=== PATIENT | male | born 1955 | race Caucasian/White ===

== ENCOUNTER 2019-10-18 14:47 | Emergency (ER) | payer MEDICARE, MEDICAID ==
[~2019-10-18] VITALS: Ht 170.2 cm; Wt 85.0 kg
[2019-10-18] MEDS ORDERED: IBUPROFEN 600MG TABLET PO STA (15:14)
[2019-10-18 15:40] VITALS: BP 115/66
[2019-10-18] MEDS ORDERED: ACETAMINOPHEN 325MG TABLET PO ONE (18:45)
== END 2019-10-18 19:04 | disposition home or self-care (01) ==
LOC: ER 14:47
DX: B34.9 Viral infection, unspecified (principal); Z20.828 Contact with and (suspected) exposure to other viral communicable diseases
CPT/HCPCS: 71045; 87804; 99284; C9803; U0003; 87635

== ENCOUNTER 2019-10-20 12:06 | Inpatient (IN) | payer MEDICARE, MEDICAID ==
[~2019-10-20] VITALS: Ht 170.2 cm; Wt 87.1 kg
[2019-10-20] MEDS ORDERED: SODIUM CHLORIDE 0.9% 1,000 ML IV ONE (13:15)
[2019-10-20] MEDS ORDERED: AZITHROMYCIN 500 MG in DEXT 5% WATER 250 ML IV ONE (13:15)
[2019-10-20] MEDS ORDERED: CEFTRIAXONE 1 G PREMIX 50 ML IV ONE (13:15)
[2019-10-20] MEDS: SODIUM CHLORIDE 0.9% 1000ML BAG (SEPSIS BOLUS) IV ONE ×2 (13:28→13:46)
[2019-10-20 13:45] LABS: BASOPHILS % 0.6 % (0.0-2.0); EOSINOPHILS % 0.2 % (0.0-5.0); HEMATOCRIT. 41.2 % (42.0-52.0); HEMOGLOBIN. 14.1 g/dL (14.0-18.0); LYMPHOCYTES % 17.3 % (20.0-50.0); MEAN CORPUSCULAR HEMOGLOBIN 29.1 pg (28.0-32.0); MEAN CORPUSCULAR VOLUME 85.4 fL (80.0-94.0); MEAN PLATELET VOLUME 8.3 fl (7.4-10.4); MONOCYTES % 6.4 % (2.0-8.0); NEUTROPHILS % 75.5 % (40.0-76.0); PLATELET 158 x1000/uL (130-400); RED BLOOD CELL COUNT 4.83 mill/uL (4.7-6.1); RED CELL DISTRIBUTION WIDTH 14.5 % (11.6-14.6)
[2019-10-20 13:51] LABS: CLARITY URINE CLOUDY (CLEAR); COLOR URINE YELLOW (YELLOW); KETONES URINE NEGATIVE (NEGATIVE); LEUKOCYTE ESTERASE URINE NEGATIVE (NEGATIVE); NITRITE URINE NEGATIVE (NEGATIVE); OCCULT BLOOD URINE NEGATIVE (NEGATIVE); PROTEIN URINE 2+ (NEGATIVE); SPECIFIC GRAVITY URINE 1.023 (1.005-1.030); UROBILINOGEN URINE 0.2 E.U./dL (0.2-1.0)
[2019-10-20 13:52] LABS: CHLORIDE 103 mEq/L (98-107)
[2019-10-20 13:55] LABS: INR 1.1; PROTHROMBIN TIME 11.1 sec (9.6-11.0)
[2019-10-20] MEDS ORDERED: SODIUM CHLORIDE 0.9% 1,000 ML IV NR (18:11)
[2019-10-20] MEDS ORDERED: ACETAMINOPHEN 500MG TABLET PO NR (18:15)
[2019-10-20] MEDS ORDERED: ACETAMINOPHEN 325MG TABLET PO PRN ×3 (18:19→23:00)
[2019-10-20 22:45] VITALS: BP 108/65
[2019-10-20] MEDS ORDERED: DEXTROSE 50% WATER 50ML SYRINGE IV PRN (23:00)
[2019-10-20] MEDS ORDERED: CLONIDINE 0.1MG TABLET PO PRN (23:00)
[2019-10-20] MEDS ORDERED: DIPHENHYDRAMINE 50MG/ML VIAL IV PRN (23:00)
[2019-10-20] MEDS ORDERED: ONDANSETRON HCL 4MG/2ML INJ IV PRN (23:00)
[2019-10-20] MEDS ORDERED: ZOLPIDEM TARTRATE 5MG TABLET PO PRN (23:00)
[2019-10-20] MEDS ORDERED: ALBUTEROL 6.7GM HFA INHALER ORI PRN (23:00)
[2019-10-20] MEDS: ENOXAPARIN 100MG/ML SYR SUBCUT SCH (23:48)
[2019-10-21] VITALS: BP 145/72
[2019-10-21] MEDS ORDERED: ALLO100T PO (02:15)
[2019-10-21] MEDS ORDERED: ALPR-339 PO (02:15)
[2019-10-21] MEDS ORDERED: MECL-159 PO (02:15)
[2019-10-21] MEDS ORDERED: CRES10 PO (02:15)
[2019-10-21] MEDS ORDERED: CHOL500063 MT (02:15)
[2019-10-21] MEDS ORDERED: FOLI0.8C PO (02:15)
[2019-10-21] MEDS ORDERED: MICAR4 PO (02:15)
[2019-10-21] MEDS: GUAIFENESIN/CODEINE 200-20MG/10ML UDC PO PRN ×2 (02:38→21:22)
[2019-10-21 04:00] VITALS: BP 137/75
[2019-10-21] MEDS: SODIUM CHLORIDE 0.9% INJ 3ML FLUSH IVF SCH ×3 (07:09→21:23)
[2019-10-21] MEDS: BLOOD SUGAR DIAGNOSTIC STRIP TEST SCH ×4 (07:09→21:15)
[2019-10-21] MEDS: INSULIN LISPRO 100 UNITS/ML SUBCUT SCH ×4 (07:49→21:16)
[2019-10-21] MEDS: GUAIFENESIN 600MG ER TABLET PO SCH ×2 (09:23→21:15)
[2019-10-21] MEDS: ENOXAPARIN 100MG/ML SYR SUBCUT SCH (09:23)
[2019-10-21] MEDS: DEXAMETHASONE 4MG TABLET PO SCH (09:23)
[2019-10-21] MEDS: FAMOTIDINE 20MG TABLET PO SCH ×2 (09:24→21:15)
[2019-10-21 09:41] VITALS: BP 114/62
[2019-10-21 12:34] VITALS: BP 110/69
[2019-10-21] MEDS: AZITHROMYCIN 500 MG in DEXT 5% WATER 250 ML IV SCH (13:42)
[2019-10-21] MEDS: CEFTRIAXONE 1,000 MG in DEXTROSE 5% WATER 50 ML IV SCH (14:57)
[2019-10-21 16:53] VITALS: BP 105/62
[2019-10-21] MEDS: ALBUTEROL 6.7GM HFA INHALER ORI SCH (16:57)
[2019-10-21 20:00] VITALS: BP 113/60
[2019-10-22] VITALS: BP 107/71
[2019-10-22 04:00] VITALS: BP 104/67
[2019-10-22] MEDS: BLOOD SUGAR DIAGNOSTIC STRIP TEST SCH ×4 (06:37→20:28)
[2019-10-22] MEDS: SODIUM CHLORIDE 0.9% INJ 3ML FLUSH IVF SCH ×3 (06:38→22:12)
[2019-10-22 08:00] VITALS: BP 113/69
[2019-10-22] MEDS: INSULIN LISPRO 100 UNITS/ML SUBCUT SCH ×4 (08:10→20:37)
[2019-10-22] MEDS: ENOXAPARIN 80MG/0.8ML SYR SUBCUT SCH (08:52)
[2019-10-22] MEDS: DEXAMETHASONE 4MG TABLET PO SCH (08:52)
[2019-10-22] MEDS: GUAIFENESIN/CODEINE 200-20MG/10ML UDC PO PRN ×2 (08:53→15:09)
[2019-10-22] MEDS: GUAIFENESIN 600MG ER TABLET PO SCH ×2 (08:53→20:35)
[2019-10-22] MEDS: FAMOTIDINE 20MG TABLET PO SCH ×2 (09:00→20:35)
[2019-10-22] MEDS: ALBUTEROL 6.7GM HFA INHALER ORI SCH ×2 (11:00→17:21)
[2019-10-22 12:00] VITALS: BP 131/60
[2019-10-22] MEDS: CEFTRIAXONE 1,000 MG in DEXTROSE 5% WATER 50 ML IV SCH (15:08)
[2019-10-22] MEDS: AZITHROMYCIN 500 MG in DEXT 5% WATER 250 ML IV SCH (15:08)
[2019-10-22 15:32] VITALS: BP 116/69
[2019-10-22 20:00] VITALS: BP 127/59
[2019-10-23] VITALS: BP 123/62
[2019-10-23] MEDS: ALBUTEROL 6.7GM HFA INHALER ORI SCH ×5 (00:25→22:34)
[2019-10-23 04:00] VITALS: BP 99/61
[2019-10-23] MEDS: SODIUM CHLORIDE 0.9% INJ 3ML FLUSH IVF SCH ×3 (05:52→22:31)
[2019-10-23] MEDS: BLOOD SUGAR DIAGNOSTIC STRIP TEST SCH ×4 (06:16→21:00)
[2019-10-23 08:00] VITALS: BP 103/63
[2019-10-23] MEDS: GUAIFENESIN 600MG ER TABLET PO SCH ×2 (08:38→22:34)
[2019-10-23] MEDS: ENOXAPARIN 80MG/0.8ML SYR SUBCUT SCH (08:39)
[2019-10-23] MEDS: FAMOTIDINE 20MG TABLET PO SCH (08:39)
[2019-10-23] MEDS: DEXAMETHASONE 4MG TABLET PO SCH (08:39)
[2019-10-23] MEDS: INSULIN LISPRO 100 UNITS/ML SUBCUT SCH ×4 (08:40→22:35)
[2019-10-23 12:00] VITALS: BP 101/58
[2019-10-23] MEDS: AZITHROMYCIN 250 MG TABLET PO SCH (13:38)
[2019-10-23] MEDS: CEFTRIAXONE 1,000 MG in DEXTROSE 5% WATER 50 ML IV SCH (15:06)
[2019-10-23 16:00] VITALS: BP 124/68
[2019-10-24] VITALS: BP 118/60
[2019-10-24 04:00] VITALS: BP 127/73
[2019-10-24] MEDS: ALBUTEROL 6.7GM HFA INHALER ORI SCH ×4 (05:33→22:51)
[2019-10-24] MEDS: SODIUM CHLORIDE 0.9% INJ 3ML FLUSH IVF SCH ×3 (05:33→21:40)
[2019-10-24] MEDS: BLOOD SUGAR DIAGNOSTIC STRIP TEST SCH ×4 (05:34→21:41)
[2019-10-24] MEDS: INSULIN LISPRO 100 UNITS/ML SUBCUT SCH ×4 (07:38→21:00)
[2019-10-24 08:00] VITALS: BP 104/65
[2019-10-24] MEDS: FAMOTIDINE 20MG TABLET PO SCH (08:09)
[2019-10-24] MEDS: ENOXAPARIN 80MG/0.8ML SYR SUBCUT SCH (08:09)
[2019-10-24] MEDS: DEXAMETHASONE 4MG TABLET PO SCH (08:09)
[2019-10-24] MEDS: GUAIFENESIN 600MG ER TABLET PO SCH ×2 (08:09→21:40)
[2019-10-24 12:00] VITALS: BP 126/71
[2019-10-24] MEDS: AZITHROMYCIN 250 MG TABLET PO SCH (13:21)
[2019-10-24 16:00] VITALS: BP 125/61
[2019-10-24] MEDS: CEFTRIAXONE 1,000 MG in DEXTROSE 5% WATER 50 ML IV SCH (17:11)
[2019-10-24 20:00] VITALS: BP 104/67
[2019-10-25] VITALS: BP 106/68
[2019-10-25 04:00] VITALS: BP 134/62
[2019-10-25] MEDS: ALBUTEROL 6.7GM HFA INHALER ORI SCH ×4 (04:37→22:34)
[2019-10-25] MEDS: SODIUM CHLORIDE 0.9% INJ 3ML FLUSH IVF SCH ×3 (06:13→21:14)
[2019-10-25] MEDS: BLOOD SUGAR DIAGNOSTIC STRIP TEST SCH ×4 (07:40→21:14)
[2019-10-25 08:00] VITALS: BP 130/73
[2019-10-25] MEDS: INSULIN LISPRO 100 UNITS/ML SUBCUT SCH ×4 (08:10→21:14)
[2019-10-25] MEDS: DEXAMETHASONE 4MG TABLET PO SCH (08:59)
[2019-10-25] MEDS: ENOXAPARIN 80MG/0.8ML SYR SUBCUT SCH (08:59)
[2019-10-25] MEDS: GUAIFENESIN 600MG ER TABLET PO SCH ×2 (09:00→21:14)
[2019-10-25] MEDS: FAMOTIDINE 20MG TABLET PO SCH (09:00)
[2019-10-25 12:00] VITALS: BP 120/68
[2019-10-25] MEDS: AZITHROMYCIN 250 MG TABLET PO SCH (13:23)
[2019-10-25 16:00] VITALS: BP 138/68
[2019-10-25 16:18] LABS: BG BASE EXCESS -5.4 mmol/L (-2.0-2.0); BG DEOXYHEMOGLOBIN 7.4 % (0.0-5.0); BG FRACTION INSPIRED OXYGEN 21; BG HCO3 ACT 17.7 mmol/L (22.0-26.0); BG METHEMOGLOBIN 0.1 % (0.0-1.5); BG OXYGEN SATURATION 92.6 % (92.0-98.5); BG OXYHEMOGLOBIN 92.5 % (94.0-97.0); BG PCO2 28.4 mmHg (35.0-45.0); BG PH 7.412 (7.350-7.450); BG PO2 66.6 mmHg (75.0-100.0); BG SAMPLE SITE RIGHT RADIAL; BG TOTAL HEMOGLOBIN 14.1 g/dL (12.0-18.0); BG VENT MODE ROOM AIR
[2019-10-25] MEDS: CEFTRIAXONE 1,000 MG in DEXTROSE 5% WATER 50 ML IV SCH (17:08)
[2019-10-25 20:00] VITALS: BP 130/62
[2019-10-26] VITALS (7 sets, daily range): BP systolic 113–138; BP diastolic 59–69
[2019-10-26] MEDS: ALBUTEROL 6.7GM HFA INHALER ORI SCH ×4 (04:47→22:52)
[2019-10-26] MEDS: SODIUM CHLORIDE 0.9% INJ 3ML FLUSH IVF SCH ×3 (06:11→21:30)
[2019-10-26] MEDS: BLOOD SUGAR DIAGNOSTIC STRIP TEST SCH ×4 (07:50→21:14)
[2019-10-26] MEDS: INSULIN LISPRO 100 UNITS/ML SUBCUT SCH ×4 (07:50→21:30)
[2019-10-26] MEDS: ENOXAPARIN 80MG/0.8ML SYR SUBCUT SCH (08:45)
[2019-10-26] MEDS: FAMOTIDINE 20MG TABLET PO SCH (08:45)
[2019-10-26] MEDS: DEXAMETHASONE 4MG TABLET PO SCH (08:45)
[2019-10-26] MEDS: GUAIFENESIN 600MG ER TABLET PO SCH ×2 (08:45→21:13)
[2019-10-27] VITALS: BP 125/63
[2019-10-27 04:00] VITALS: BP 127/65
[2019-10-27] MEDS: SODIUM CHLORIDE 0.9% INJ 3ML FLUSH IVF SCH ×2 (05:26→16:31)
[2019-10-27] MEDS: ALBUTEROL 6.7GM HFA INHALER ORI SCH ×3 (05:27→16:32)
[2019-10-27 08:00] VITALS: BP 114/74
[2019-10-27] MEDS: INSULIN LISPRO 100 UNITS/ML SUBCUT SCH ×3 (08:03→17:14)
[2019-10-27] MEDS: BLOOD SUGAR DIAGNOSTIC STRIP TEST SCH ×3 (08:03→16:42)
[2019-10-27] MEDS: GUAIFENESIN 600MG ER TABLET PO SCH (08:52)
[2019-10-27] MEDS: ENOXAPARIN 80MG/0.8ML SYR SUBCUT SCH (08:52)
[2019-10-27] MEDS: FAMOTIDINE 20MG TABLET PO SCH (08:53)
[2019-10-27] MEDS ORDERED: DEXAMETHASONE 4MG TABLET PO SCH (09:00)
[2019-10-27 12:00] VITALS: BP 115/62
[2019-10-27 13:52] LABS: BG BASE EXCESS -5.9 mmol/L (-2.0-2.0); BG CARBOXYHEMOGLOBIN 0.4 % (0.5-1.5); BG DEOXYHEMOGLOBIN 2.8 % (0.0-5.0); BG FRACTION INSPIRED OXYGEN 32; BG HCO3 ACT 17.2 mmol/L (22.0-26.0); BG METHEMOGLOBIN 0.2 % (0.0-1.5); BG OXYGEN SATURATION 97.2 % (92.0-98.5); BG OXYHEMOGLOBIN 96.6 % (94.0-97.0); BG PCO2 27.9 mmHg (35.0-45.0); BG PH 7.407 (7.350-7.450); BG PO2 97.9 mmHg (75.0-100.0); BG SAMPLE SITE RIGHT RADIAL; BG TOTAL HEMOGLOBIN 14.3 g/dL (12.0-18.0); BG VENT MODE NASAL CANNULA
[2019-10-27 15:14] VITALS: BP 115/62
[2019-10-27 16:00] VITALS: BP 108/59
== END 2019-10-27 19:30 | disposition home or self-care (01) | DRG 871 ==
LOC: ER 12:06 → EDBEDREQ 14:42 → ENRESERV 21:44 → 7WST 22:34
PROVIDERS: ADMIT Internal Medicine; ATTEND Internal Medicine
DX: A41.89 Other specified sepsis (principal); U07.1 COVID-19; J12.89 Other viral pneumonia; J96.01 Acute respiratory failure with hypoxia; N17.9 Acute kidney failure, unspecified; E87.1 Hypo-osmolality and hyponatremia; B97.89 Other viral agents as the cause of diseases classified elsewhere; E78.5 Hyperlipidemia, unspecified; I12.9 Hypertensive chronic kidney disease with stage 1 through stage 4 chronic kidney disease, or unspecified chronic kidney disease; E11.22 Type 2 diabetes mellitus with diabetic chronic kidney disease; E78.00 Pure hypercholesterolemia, unspecified; M10.9 Gout, unspecified; K52.9 Noninfective gastroenteritis and colitis, unspecified; D64.9 Anemia, unspecified; R74.0 Nonspecific elevation of levels of transaminase and lactic acid dehydrogenase [LDH]; D72.810 Lymphocytopenia; R00.1 Bradycardia, unspecified; N18.3 Chronic kidney disease, stage 3 (moderate)
CPT/HCPCS: 36415; 36600; 71045; 80048; 80053; 81003; 82375; 82805; 82962; 83036; 83605; 83880; 84145; 84484; 85025; 85379; 86140; 86850; 86900; 87635; 87804; 93005; 96365; 99284; 99291; J0456; J0696; J1650; J1815; J7030; J7060; J8540; C9803-CS; U0003-CS